=== PATIENT | male | born 1980 | race Caucasian/White ===

== ENCOUNTER 2016-09-07 19:14 | Emergency (ER) | payer SELFPAY ==
[~2016-09-07] VITALS: Ht 182.9 cm; Wt 85.0 kg
[~2016-09-07 19:14] MED LIST: NAPR550 PO; Z.0.NO CURRENT MEDS; ZOFR4TAB3 SL
[2016-09-07 19:21] VITALS: BP 166/98; PULSE 95; RESP 10; TEMP 98; O2SAT 96
[2016-09-07] MEDS ORDERED: SODIUM CHLOR 0.9% 1000 ML INJ 1,000 ML IV ONE (19:45)
[2016-09-07 19:49] LABS: AUTOMATED NEUTROPHIL # 3.8 TH/MM3 (1.8-7.7); BASOPHIL % 0.4 % (0.0-2.0); EOSINOPHIL # 0.3 TH/MM3 (0-0.4); EOSINOPHIL % 3.5 % (0.0-4.0); HEMATOCRIT 35.8 % (39.0-51.0); HEMO FLAGS DIFF FINAL; LYMPH % 36.1 % (9.0-44.0); LYMPHOCYTE # 2.9 TH/MM3 (1.0-4.8); MEAN CELL VOLUME 80.4 FL (80.0-100.0); MEAN CORPUSCULAR HEMOGLOBIN 28.5 PG (27.0-34.0); MEAN CORPUSCULAR HGB CONC 35.4 % (32.0-36.0); MONO % 12.5 % (0.0-8.0); NEUT % 47.5 % (16.0-70.0); PLATELET COUNT 230 TH/MM3 (150-450); RED BLOOD COUNT 4.46 MIL/MM3 (4.50-5.90); RED CELL DISTRIBUTION WIDTH 14.2 % (11.6-17.2)
[2016-09-07 20:13] LABS: AST (GOT) 30 U/L (15-37); BICARBONATE 32.4 MEQ/L (21.0-32.0); BLOOD UREA NITROGEN 9 MG/DL (7-18); GLOMERULAR FILTRATION RATE 111 ML/MIN (>89)
--- NOTE | 2016-09-07 20:28 | PD ---
HPI Chief Complaint: OD/ Ingestion Time Seen by Provider: 19:34 Travel History International Travel<30 days: No Contact w/Intl Traveler<30days: No Traveled to known affect area: No History of Present Illness HPI Patient is a 36 year old male who comes in after a heroine overdose. His friend with him saw him inject himself and then he stopped breathing, so she called 9-1-1. Per EMS, he was unconscious, sitting in a car. There was concern he was not protecting his airway, so he was given 0.2mg Narcan. EMS said he had pinpoint pupils at the time. After Narcan, he woke up and was breathing normally. There was no evidence of trauma on scene. Patient states he has been using heroine and speed for the past 3 months daily. He denies feeling ill. He denies fever or chills. He says he has body aches all over. PFSH Past Medical History Arthritis: No Autoimmune Disease: No Cardiovascular Problems: No Diminished Hearing: No Hypertension: Yes Musculoskeletal: Yes (BACK) Neurologic: No Psychiatric: No Respiratory: No Myocardial Infarction: Yes (X2 AT AGE OF 29) Past Surgical History Other Surgery: No Social History Alcohol Use: No Tobacco Use: Yes () Substance Use: Yes (HX OF "RECREACTIONAL" MARIJUANA, HEROIN) Allergies-Medications (Allergen,Severity, Reaction): Coded Allergies: No Known Allergies (Verified , 09/07/16) Reported Meds & Prescriptions Reported Meds & Active Scripts Active No Active Prescriptions or Reported Medications Review of Systems Except as stated in HPI: all other systems reviewed are Neg General / Constitutional: No: Fever, Chills HENT: No: Headaches, Lightheadedness Cardiovascular: No: Chest Pain or Discomfort Respiratory: No: Shortness of Breath Gastrointestinal: No: Nausea, Vomiting Musculoskeletal: Positive: Myalgias Skin: No Rash, No Change in Pigmentation Neurologic: No: Weakness, Dizziness Physical Exam Narrative GENERAL: Awake and alert, in no acute distress. SKIN: Focused skin assessment warm/dry. HEAD: Atraumatic. Normocephalic. EYES: Pupils equal and round. No scleral icterus. EOMI ENT: Mucous membranes pink and moist. NECK: Trachea midline. No JVD. CARDIOVASCULAR: Regular rate and rhythm. No murmur appreciated. RESPIRATORY: No accessory muscle use. Clear to auscultation. Breath sounds equal bilaterally. MUSCULOSKELETAL: No obvious deformities. No clubbing. No cyanosis. No edema. NEUROLOGICAL: Awake and alert. No obvious cranial nerve deficits. Motor grossly within normal limits. Normal speech. PSYCHIATRIC: Appropriate mood and affect; insight and judgment normal. Data Data Last Documented VS Vital Signs Date Time Temp Pulse Resp B/P Pulse Ox O2 Delivery O2 Flow Rate FiO2 09/08/16 04:00 63 14 106/57 96 Room Air 09/07/16 19:21 98.0 Orders Complete Blood Count With Diff (09/07/16 19:35) Comprehensive Metabolic Panel (09/07/16 19:35) Creatine Kinase (Cpk) (09/07/16 19:35) Troponin I (09/07/16 19:35) Sodium Chlor 0.9% 1000 Ml Inj (Ns 1000 M (09/07/16 19:45) CKMB (09/07/16 19:30) CKMB% (09/07/16 19:30) Potassium Chloride (Kcl) (09/07/16 21:00) Electrocardiogram (09/07/16 19:22) Labs Laboratory Tests Test 09/07/16 19:30 White Blood Count 8.0 TH/MM3 Red Blood Count 4.46 MIL/MM3 Hemoglobin 12.7 GM/DL Hematocrit 35.8 % Mean Corpuscular Volume 80.4 FL Mean Corpuscular Hemoglobin 28.5 PG Mean Corpuscular Hemoglobin 35.4 % Concent Red Cell Distribution Width 14.2 % Platelet Count 230 TH/MM3 Mean Platelet Volume 7.2 FL Neutrophils (%) (Auto) 47.5 % Lymphocytes (%) (Auto) 36.1 % Monocytes (%) (Auto) 12.5 % Eosinophils (%) (Auto) 3.5 % Basophils (%) (Auto) 0.4 % Neutrophils # (Auto) 3.8 TH/MM3 Lymphocytes # (Auto) 2.9 TH/MM3 Monocytes # (Auto) 1.0 TH/MM3 Eosinophils # (Auto) 0.3 TH/MM3 Basophils # (Auto) 0.0 TH/MM3 CBC Comment DIFF FINAL Differential Comment Sodium Level 139 MEQ/L Potassium Level 3.1 MEQ/L Chloride Level 99 MEQ/L Carbon Dioxide Level 32.4 MEQ/L Anion Gap 8 MEQ/L Blood Urea Nitrogen 9 MG/DL Creatinine 0.80 MG/DL Estimat Glomerular Filtration 111 ML/MIN Rate Random Glucose 65 MG/DL Calcium Level 8.5 MG/DL Total Bilirubin 0.6 MG/DL Aspartate Amino Transf 30 U/L (AST/SGOT) Alanine Aminotransferase 28 U/L (ALT/SGPT) Alkaline Phosphatase 81 U/L Total Creatine Kinase 535 U/L Creatine Kinase MB 5.2 NG/ML Creatine Kinase MB % 1.0 % Troponin I LESS THAN 0.02 NG/ML Total Protein 7.8 GM/DL Albumin 3.5 GM/DL MDM Medical Decision Making Medical Screen Exam Complete: Yes Emergency Medical Condition: Yes Medical Record Reviewed: Yes Differential Diagnosis opiate overdose vs dehydration vs rhabdo vs electrolyte abnormalities Narrative Course Patient is a 36-year-old male brought in after heroin overdose. Exam shows no acute abnormalities. IV was established by EMS. Patient given IV fluids. Labs sent show a potassium of 3.1, no other abnormalities. Patient given oral replacement. Observed in the emergency department until awake and clinically sober. Discharged home and advised to refrain from using drugs. Advised follow -up with a primary care doctor. Advised to return to the ED as needed for any worsening symptoms. Diagnosis Primary Impression: Opiate overdose Qualified Code: T40.601A - Opiate overdose, accidental or unintentional, initial encounter Patient Instructions: General Instructions, Opioid Overdose (ED) Additional Instructions: Avoid drug use. Follow up with a primary care doctor. Return to the ED as needed for any worsening symptoms. Scripts No Active Prescriptions or Reported Meds Disposition: 01 DISCHARGE HOME Condition: Stable Stefanie Frod MD September 07, 2016 20:28
[2016-09-07 20:30] VITALS: BP 164/80; PULSE 78; RESP 14; O2SAT 99
[2016-09-07 20:41] LABS: ALKALINE PHOSPHATASE 81 U/L (45-117); ALT (GPT) 28 U/L (12-78); ANION GAP 8 MEQ/L (5-15); CHLORIDE 99 MEQ/L (98-107); CREATINE KINASE 535 U/L (39-308); POTASSIUM 3.1 MEQ/L (3.5-5.1); SODIUM (NA) 139 MEQ/L (136-145); TOTAL BILIRUBIN ADULT 0.6 MG/DL (0.2-1.0)
[2016-09-07 20:54] LABS: CKMB 5.2 NG/ML (0.5-3.6)
[2016-09-07 21:00] VITALS: BP 157/70; PULSE 77; RESP 14; O2SAT 99
[2016-09-07] MEDS ORDERED: POTASSIUM CHLORIDE 20 MEQ CONTROLLED RELEASE TAB PO ONE (21:00)
[2016-09-08] VITALS: BP 133/66; PULSE 62; RESP 18; O2SAT 99
[2016-09-08 04:00] VITALS: BP 106/57; PULSE 63; RESP 14; O2SAT 96
--- NOTE | 2016-09-08 13:45 | EKG ---
Date Performed: 09/07/2016 Time Performed: 19:22:45 PTAGE: 36 years EKG: SINUS TACHYCARDIA ABNORMAL RHYTHM ECG NO PREVIOUS TRACING DOCTOR: Irving Rodriguez Interpretating Date/Time 09/08/2016 13:40:58
== END 2016-09-08 04:59 | disposition home or self-care (01) ==
LOC: NEPE 19:14
DX: T40.1X1A Poisoning by heroin, accidental (unintentional), initial encounter (principal); R00.0 Tachycardia, unspecified; M79.1 Myalgia; I10 Essential (primary) hypertension; I25.2 Old myocardial infarction; F17.200 Nicotine dependence, unspecified, uncomplicated; Z87.39 Personal history of other diseases of the musculoskeletal system and connective tissue
CPT/HCPCS: 80053; 82550; 82552; 84484; 85025; 93005; 96360; 99284; J7030

== ENCOUNTER 2017-10-09 19:39 | Emergency (ER) | payer SELFPAY ==
[~2017-10-09] VITALS: Ht 180.3 cm; Wt 80.0 kg
[2017-10-09 19:39] VITALS: BP 116/81; PULSE 95; RESP 14; TEMP 97.6; O2SAT 100
--- NOTE | 2017-10-09 20:18 | PD ---
HPI Chief Complaint: Medical Clearance Time Seen by Provider: 19:56 Travel History International Travel<30 days: No Contact w/Intl Traveler<30days: No Traveled to known affect area: No History of Present Illness HPI 37-year-old male that presents to the ED for evaluation of medical clearance for intermediate. Patient apparently was found by police to have an IV on her his right arm. Per patient allegedly he was released with this IV as they apparently forgot about it. Per report I was given by police as well as ED nurse apparently patient had a well check by [facility] and police performed at the request of [facility] which I suspect was secondary from him eloping with an IV. He has a history of substance abuse and has been here last month for evaluation of OD. He did denies any medical issues. Per patient he was there because he was being evaluated for heart failure. Per patient he was released with the IV. He denies any other medical issues at this time. No medical problems. He is here mainly to get the IV removed so he can go to intermediate. No complaints. PFSH Past Medical History Arthritis: No Autoimmune Disease: No Cardiovascular Problems: No Diminished Hearing: No Hypertension: Yes Musculoskeletal: Yes (BACK) Neurologic: No Psychiatric: No Respiratory: No Myocardial Infarction: Yes (X2 AT AGE OF 29) Past Surgical History Other Surgery: No Social History Alcohol Use: No Tobacco Use: Yes ( DAY) Substance Use: Yes (HX OF "RECREACTIONAL" MARIJUANA, HEROIN) Allergies-Medications (Allergen,Severity, Reaction): Coded Allergies: No Known Allergies (Verified , 09/07/16) Reported Meds & Prescriptions Reported Meds & Active Scripts Active No Active Prescriptions or Reported Medications Review of Systems Except as stated in HPI: all other systems reviewed are Neg Physical Exam Narrative GENERAL: SKIN: Warm and dry. HEAD: Atraumatic. Normocephalic. EYES: Pupils equal and round. No scleral icterus. No injection or drainage. ENT: No nasal bleeding or discharge. Mucous membranes pink and moist. Tongue is midline. No uvula deviation. NECK: Trachea midline. No JVD. CARDIOVASCULAR: Regular rate and rhythm. No murmurs, S3, S4. RESPIRATORY: No accessory muscle use. Clear to auscultation. Breath sounds equal bilaterally. GASTROINTESTINAL: Abdomen soft, non-tender, nondistended. Hepatic and splenic margins not palpable. MUSCULOSKELETAL: Extremities without clubbing, cyanosis, or edema. No obvious deformities. Full range of motion of the upper and lower extremities bilaterally. 2+ pulses bilaterally. 1+ pitting edema in the lower extremities bilaterally. NEUROLOGICAL: Awake and alert. No obvious cranial nerve deficits. Motor grossly within normal limits. Five out of 5 muscle strength in the arms and legs. Normal speech. PSYCHIATRIC: Appropriate mood and affect; insight and judgment normal. Data Data Last Documented VS Vital Signs Date Time Temp Pulse Resp B/P (MAP) Pulse Ox O2 Delivery O2 Flow Rate FiO2 10/09/17 19:45 75 10/09/17 19:39 97.6 14 116/81 (93) 100 Orders Orders Ed Discharge Order (10/09/17 19:57) MDM Medical Decision Making Medical Screen Exam Complete: Yes Emergency Medical Condition: Yes Medical Record Reviewed: Yes Differential Diagnosis Medical clearance versus IV removal versus opiate abuse Narrative Course 37-year-old male that presents to the ED for evaluation of removal of IV so he can go to intermediate. Patient was properly examined and was found to have signs and symptoms consistent with medical clearance. No sign of acute medical distress at this time. Patient's history of being released with the IV appear to be somewhat suspicious that he likely eloped from another facility. He does have a history of IV drug abuse and has been here for overdoses in the past. On physical exam he does not appear to be in any sign of acute distress. He does have some lower leg edema but appears to be chronic. Vitals and physical exam are reassuring. This time IV will be removed. Patient will be medically clear for intermediate. Follow-up with PCP. See ED worsening symptoms. Case was discussed with my attending Dr. Davies who agrees with plan. Diagnosis Primary Impression: Medical clearance for incarceration Patient Instructions: General Instructions Med/Other Pt SpecificInfo: No Change to Meds Scripts No Active Prescriptions or Reported Meds Disposition: [address] LAW ENFORCEMNT Condition: Stable Darnell Rodriguez Oct 09, 2017 20:18
== END 2017-10-09 20:18 | disposition home or self-care (01) ==
LOC: NEDAMB 19:39
DX: I10 Essential (primary) hypertension (principal); I25.2 Old myocardial infarction; F17.210 Nicotine dependence, cigarettes, uncomplicated; F11.10 Opioid abuse, uncomplicated; F12.10 Cannabis abuse, uncomplicated
CPT/HCPCS: 99281